=== PATIENT | female | born 1990 | race Caucasian/White ===

== ENCOUNTER 2018-01-16 12:27 | Emergency (ER) | payer SELFPAY ==
[~2018-01-16] VITALS: Ht 154.9 cm; Wt 86.2 kg
[2018-01-16 12:43] VITALS: Ht 154.9 cm; Wt 86.2 kg
[2018-01-16 13:29] LABS: BASOPHIL % 0.3 % (0-2); PLATELET COUNT 252 x10^3mcL (130-400)
[2018-01-16 13:49] LABS: RED CELL DISTRIBUTION WIDTH 15.4 % (11.5-14.5)
[2018-01-16 14:06] LABS: microscopic required? YES; urine erythrocyte 1+ (NEGATIVE)
[2018-01-16 16:11] VITALS: BP 108/66
== END 2018-01-16 16:11 | disposition home or self-care (01) ==
LOC: ED 12:27
PROVIDERS: Emergency Medicine
DX: O26.891 Other specified pregnancy related conditions, first trimester (principal); Z3A.01 Less than 8 weeks gestation of pregnancy
CPT/HCPCS: 36415

== ENCOUNTER 2018-11-24 14:13 | Emergency (ER) | payer SELFPAY ==
[~2018-11-24] VITALS: Ht 154.9 cm; Wt 83.9 kg
[2018-11-24 14:20] VITALS: Ht 154.9 cm; Wt 83.9 kg
[2018-11-24 15:11] LABS: CARBON DIOXIDE 22.5 mmol/L (21-32); CHLORIDE SERUM 102 mmol/L (98-107); CREATININE SERUM 0.8 mg/dL (0.6-1.0); GFR1 > 60 mL/min; GLUCOSE SERUM 91 mg/dL (74-106); POTASSIUM SERUM 3.7 mmol/L (3.5-5.1); SODIUM SERUM 138 mmol/L (136-145)
[2018-11-24 15:12] LABS: BASOPHIL % 0.5 % (0-2); PLATELET COUNT 245 x10^3mcL (130-400); RED CELL DISTRIBUTION WIDTH 13.5 % (11.5-14.5)
[2018-11-24 15:16] LABS: ALBUMIN 3.5 g/dL (3.4-5.0); ALKALINE PHOSPHATASE 90 U/L (46-116); ALT/SGPT 24 U/L (14-59); AST/SGOT 13 U/L (15-37); BILIRUBIN TOTAL 0.56 mg/dL (0.20-1.00); TOTAL PROTEIN, SERUM 7.9 g/dL (6.4-8.2)
[2018-11-24 15:42] LABS: UA SPECIFIC GRAVITY 1.015 (1.005-1.035); microscopic required? YES; urine erythrocyte NEGATIVE (NEGATIVE)
[2018-11-24 17:44] VITALS: BP 114/71
== END 2018-11-24 17:44 | disposition home or self-care (01) ==
LOC: ED 14:13
PROVIDERS: Emergency Medicine
DX: R10.10 Upper abdominal pain, unspecified (principal); R11.2 Nausea with vomiting, unspecified; R19.7 Diarrhea, unspecified; Z90.49 Acquired absence of other specified parts of digestive tract
CPT/HCPCS: J1885; J2405; J7030; Q9967

== ENCOUNTER 2018-12-28 11:47 | Emergency (ER) | payer SELFPAY ==
[~2018-12-28] VITALS: Ht 154.9 cm; Wt 83.9 kg
[2018-12-28 15:23] VITALS: BP 126/74
== END 2018-12-28 15:23 | disposition home or self-care (01) ==
LOC: ED 11:47
DX: N30.00 Acute cystitis without hematuria (principal)
CPT/HCPCS: 87491; 87591